=== PATIENT | female | born 1970 | race African-American/Black ===

== ENCOUNTER 2021-01-04 19:13 | Emergency (ER) | payer BC ==
[2021-01-04 19:40] VITALS: BP 155/100; PULSE 90; TEMP 98.7; BMI 41.8
[2021-01-04] MEDS ORDERED: ACETAMINOPHEN 1000 MG/100 ML VIAL (NON FORMULARY) IVPB ONE (20:24)
[2021-01-04] MEDS ORDERED: SODIUM CHLORIDE 1,000 ML IV STA (20:24)
[2021-01-04 20:47] LABS: URINE APPEARANCE CLEAR; URINE BILIRUBIN NEGATIVE (NEGATIVE); URINE COLOR YELLOW; URINE GLUCOSE (UA) NEGATIVE (NEGATIVE); URINE KETONE NEGATIVE (NEGATIVE); URINE LEUK ESTERASE NEGATIVE (NEGATIVE); URINE NITRITE NEGATIVE (NEGATIVE); URINE PROTEIN NEGATIVE (NEGATIVE)
[2021-01-04 20:49] LABS: HCG,QUALITATIVE URINE Negative
[2021-01-04 21:24] LABS: BASO % 0.5 % (0-2.0); EOS % 2.3 % (0-4.5); HEMATOCRIT 42.4 % (32.4-45.2); HEMOGLOBIN 14.2 GM/dL (10.7-15.3); LYMPH % 22.6 % (8-40); MCH 28.8 pg (25.7-33.7); MCHC 33.4 g/dl (32.0-36.0); MEAN CELL VOLUME 86.2 fl (80-96); MONO % 7.6 % (3.8-10.2); PLATELET COUNT 243 K/MM3 (134-434); RBC 4.92 M/mm3 (3.60-5.2); RDW 14.4 % (11.6-15.6); WHITE BLOOD COUNT 7.7 K/mm3 (4.0-10.0)
[2021-01-04 21:56] LABS: ALBUMIN 3.7 g/dl (3.4-5.0); BLOOD UREA NITROGEN 9.5 mg/dL (7-18); CALCIUM 9.1 mg/dL (8.5-10.1)
[2021-01-04 21:59] LABS: CREATININE 0.6 mg/dL (0.55-1.3)
[2021-01-04 22:01] LABS: BILIRUBIN,TOTAL 1.2 mg/dL (0.2-1)
[2021-01-04] MEDS ORDERED: CIPROFLOXACIN 500 MG TABLET (RESTRICTED TO ID) PO ONE (23:20)
[2021-01-04] MEDS ORDERED: metroNIDAZOLE 250 MG TABLET PO ONE (23:20)
== END 2021-01-05 00:30 | disposition home or self-care (01) ==
LOC: JER 19:13
PROC: 3E033NZ Introduction of Analgesics, Hypnotics, Sedatives into Peripheral Vein, Percutaneous Approach (ICD-10-PCS; principal; 2021-01-04)
PROC: 3E0337Z Introduction of Electrolytic and Water Balance Substance into Peripheral Vein, Percutaneous Approach (ICD-10-PCS; 2021-01-04)
DX: R10.32 Left lower quadrant pain (principal); K57.92 Diverticulitis of intestine, part unspecified, without perforation or abscess without bleeding
CPT/HCPCS: 36415; 74177-TC; 80053; 81003; 83690; 84703; 85025; 99285-25; J0131; Q9967